=== PATIENT | male | born 1955 ===

== ENCOUNTER 2016-06-25 19:31 | Emergency (ER) | payer OTHER ==
--- NOTE | 2016-06-25 19:44 | CPEKG ---
Heart Rate: 73 RR Interval: 822 P-R Interval: 180 QRSD Interval: 98 QT Interval: 408 QTC Interval: 450 P [place]: 47 QRS [place]: 61 T Wave [place]: 34 EKG Severity - BORDERLINE ECG - EKG Impression: SINUS RHYTHM EKG Impression: BORDERLINE INFERIOR Q WAVES Electronically Signed By: Zachery North 25-Jun-2016 21:08:04
[2016-06-25] MEDS ORDERED: NS 1,000 ML IV ONE (19:54)
[2016-06-25] MEDS ORDERED: LORazepam 2 MG/ML INJ IVP ONE (19:55)
[2016-06-25 19:59] LABS: % IMMATURE GRANULYOCYTES 0.2 % (0.0-1.1); ABSOLUTE IMMATURE GRANULOCYTES 0.02 10^3/uL (0.00-0.10); ADD DIFF? NO; ADD MORPH? NO; ADD SCAN? NO; ATYPICAL LYMPHOCYTE FLAG 10 (0-99); FRAGMENT RBC FLAG 0 (0-99); HEMATOCRIT 43.8 % (40.0-51.0); HEMOGLOBIN 15.1 g/dL (13.7-17.5); LEFT SHIFT FLG 0 (0-99); LIPEMIA HEMOLYSIS FLAG 90 (0-99); MEAN CELL HEMOGLOBIN 29.8 pg (27.9-34.1); MEAN CELL HEMOGLOBIN CONCENTR. 34.5 g/dL (32.4-36.7); MEAN CELL VOLUME 86.4 fL (81.5-99.8); PLATELET CLUMPS FLAG 30 (0-99); PLATELET COUNT 236 10^3/uL (150-400); RED BLOOD CELL COUNT 5.07 10^6/uL (4.40-6.38); RED CELL DISTRIBUTION WIDTH 14.2 % (11.5-15.2)
--- NOTE | 2016-06-25 20:08 | EDPHY ---
H & P Stated Complaint: Dizzyness Time Seen by Provider: 06/25/16 19:38 HPI/ROS: CHIEF COMPLAINT: Presyncope, dizziness, mild anxiety HISTORY OF PRESENT ILLNESS: The patient presents to the emergency department with a chief complaint of presyncope, dizziness and mild anxiety. The patient review reports he is under fair amount of stress over maintenance payments he is making to his ex- which may be prolonged another 10 years. Additionally , the patient is facing some uncertainty surrounding his division at work. The patient was at dinner this evening and developed generalized weakness, lightheadedness and presyncope. He had no complaints of chest pain or shortness of breath. He had no neurologic symptoms. The patient presents to the ED for further evaluation. The patient had a similar episode 5 years ago and was evaluated in the emergency department without pathology. The patient has no history of significant past medical problems. REVIEW OF SYSTEMS: A comprehensive 10 point review of systems is otherwise negative aside from elements mentioned in the history of present illness. Source: Patient Exam Limitations: No limitations - Personal History Current Tetanus/Diphtheria Vaccine: Yes Current Tetanus Diphtheria and Acellular Pertussis (TDAP): Yes Tetanus Vaccine Date: WITHIN 10 Y - Medical/Surgical History Hx Asthma: No Hx Chronic Respiratory Disease: No Hx Diabetes: No Hx Cardiac Disease: No Hx Renal Disease: No Hx Cirrhosis: No Hx Alcoholism: No Hx HIV/AIDS: No Hx Splenectomy or Spleen Trauma: No Other PMH: nocturnal apnea. C5-C6 artificial disc - Social History Smoking Status: Never smoked - Physical Exam Exam: General Appearance: Alert, no distress Eyes: Pupils equal and round no pallor or injection ENT, Mouth: Mucous membranes moist Respiratory: There are no retractions, lungs are clear to auscultation Cardiovascular: Regular rate and rhythm Gastrointestinal: Abdomen is soft and nontender, no masses, bowel sounds normal Neurological: A&O, normal motor function, normal sensory exam, normal cranial nerves Skin: Warm and dry, no rashes Musculoskeletal: Neck is supple nontender Extremities: symmetrical, full range of motion Constitutional: Initial Vital Signs Temperature (C) 36.9 C 06/25/16 19:41 Heart Rate 72 06/25/16 19:41 Respiratory Rate 14 06/25/16 19:41 Blood Pressure 158/100 H 06/25/16 19:41 O2 Sat (%) 97 06/25/16 19:41 O2 Delivery Mode Room Air Allergies/Adverse Reactions: MOLD Allergy (Mild, Uncoded 06/25/16 19:41) Congestion Home Medications: Medication Instructions Recorded No Home Medications 11/30/12 Pharmacy Completed 11/30/12 11/30/12 LORazepam [Ativan] 1 mg PO BID PRN #10 tab 06/25/16 Medical Decision Making - Diagnostics EKG Interpretation: EKG: Complete interpretation has been separately recorded in the [place] archive. Summary impression: Sinus rhythm, borderline Q-waves noted ED Course/Re-evaluation: The patient presents to the emergency department with symptoms likely related to anxiety. The patient has no evidence of an arrhythmia. He has no risk factors for cardiac disease. The patient is noted to be neurologically intact. In the emergency department the patient did receive IV fluids and 1 mg of IV Ativan. The patient's laboratory studies are within normal limits. At this point time I do feel the patient can be discharged home with customary return precautions such as returning to the ED immediately for chest pain, difficulty breathing, severe headache or neurologic symptoms. The patient is scheduled to get his annual physical through his primary care provider in the next month. The patient was re-evaluated by myself at 9:00 p.m.. He continues to have a normal neurologic examination. His vital signs are stable. The patient will be given a short course of Ativan to use on an as-needed basis for his situational anxiety. Differential Diagnosis: Differential diagnosis considered includes anxiety, arrhythmia, dehydration, metabolic abnormality, anemia - Data Points Laboratory Results: Laboratory Results 06/25/16 19:45 06/25/16 19:45 06/25/16 19:45 WBC 9.07 10^3/uL (3.80-9.50) RBC 5.07 10^6/uL (4.40-6.38) Hgb 15.1 g/dL (13.7-17.5) Hct 43.8 % (40.0-51.0) MCV 86.4 fL (81.5-99.8) MCH 29.8 pg (27.9-34.1) MCHC 34.5 g/dL (32.4-36.7) RDW 14.2 % (11.5-15.2) Plt Count 236 10^3/uL (150-400) MPV 10.0 fL (8.7-11.7) Neut % (Auto) 52.7 % (39.3-74.2) Lymph % (Auto) 38.1 % (15.0-45.0) [place] % (Auto) 7.6 % (4.5-13.0) Eos % (Auto) 1.0 % (0.6-7.6) Baso % (Auto) 0.4 % (0.3-1.7) Nucleat RBC Rel Count 0.0 % (0.0-0.2) Absolute Neuts (auto) 4.77 10^3/uL (1.70-6.50) Absolute Lymphs (auto) 3.46 H 10^3/uL (1.00-3.00) Absolute Monos (auto) 0.69 10^3/uL (0.30-0.80) Absolute Eos (auto) 0.09 10^3/uL (0.03-0.40) Absolute Basos (auto) 0.04 10^3/uL (0.02-0.10) Absolute Nucleated RBC 0.00 10^3/uL (0-0.01) Immature Gran % 0.2 % (0.0-1.1) Immature Gran # 0.02 10^3/uL (0.00-0.10) Sodium 136 mEq/L (134-144) Potassium 3.8 mEq/L (3.5-5.2) Chloride 100 mEq/L (97-110) Carbon Dioxide 27 mEq/l (22-31) Anion Gap 9 mEq/L (8-16) BUN 16 mg/dL (7-23) Creatinine 0.8 mg/dL (0.7-1.3) Estimated GFR > 60 Glucose 119 H mg/dL (70-100) Calcium 9.2 mg/dL (8.5-10.4) Medications Given: Discontinued Medications Sodium Chloride (Ns) 1,000 mls @ 0 mls/hr IV ONCE ONE PRN Reason: Wide Open Stop: 06/25/16 19:55 Last Admin: 06/25/16 19:57 Dose: 1,000 mls Lorazepam (Ativan Injection) 1 mg IVP EDNOW ONE Stop: 06/25/16 19:56 Last Admin: 06/25/16 20:03 Dose: 1 mg Departure - Departure Disposition: Home, Routine, Self-Care Clinical Impression: Anxiety Condition: Good Instructions: Anxiety (ED) Additional Instructions: 1. Please return to the ED for passing out, chest pain, difficulty breathing, worsening symptoms or other concerns. 2. Please follow up as scheduled with your primary care provider for your annual physical. 3. You have been given a short prescription for Ativan. Please uses medication cautiously as a can be habit-forming. Prescriptions: LORazepam [Ativan] 1 mg PO BID PRN #10 tab PRN Reason: for anxiety
[2016-06-25 20:17] LABS: ANION GAP 9 mEq/L (8-16); CALCIUM 9.2 mg/dL (8.5-10.4); CARBON DIOXIDE 27 mEq/l (22-31); CHLORIDE 100 mEq/L (97-110); CREATININE 0.8 mg/dL (0.7-1.3); GLOMERULAR FILTRATION RATE > 60; GLUCOSE 119 mg/dL (70-100); POTASSIUM 3.8 mEq/L (3.5-5.2); SODIUM 136 mEq/L (134-144)
[2016-06-25 20:55] VITALS: BP 131/90; PULSE 73; RESP 16; TEMP 97.7; O2SAT 97
== END 2016-06-25 20:55 | disposition home or self-care (01) ==
DX: F41.9 Anxiety disorder, unspecified (principal)
CPT/HCPCS: 96374

== ENCOUNTER 2016-07-17 13:25 | Emergency (ER) | payer OTHER ==
--- NOTE | 2016-07-17 13:45 | CPEKG ---
Heart Rate: 66 RR Interval: 909 P-R Interval: 164 QRSD Interval: 98 QT Interval: 420 QTC Interval: 441 P [place]: 51 QRS [place]: 54 T Wave [place]: 31 EKG Severity - NORMAL ECG - EKG Impression: SINUS RHYTHM Electronically Signed By: Best Rahman 17-Jul-2016 13:50:06
--- NOTE | 2016-07-17 13:49 | EDPHY ---
H & P Time Seen by Provider: 07/17/16 13:48 HPI/ROS: CHIEF COMPLAINT: Heartburn and anxiety HISTORY OF PRESENT ILLNESS: This 61-year-old man presents to me with a history of about 1 month of intermittent anxiety. He returned back [place] Thursday, from a vacation in [facility]. Yesterday morning he developed some heartburn in the morning which resolved with antacid, and then today again at 7:30 a.m. he developed a little bit of heartburn which also resolved within acid. He describes it as a dull pain around my diaphragm associated with belching. It is in his epigastrium but also had a little bit of lightheadedness today. Around noon in his was out with her parents he developed recurrent heartburn with dizziness and feeling lightheaded and anxiety and was brought to the emergency department by EMS. Currently symptoms are mostly resolved except for some very slight epigastric symptoms and some dizziness. REVIEW OF SYSTEMS: Eye: no change in vision ENT: no sore throat Cardiac: No palpitations or syncope and no pain in his chest. Pulmonary: no cough or SOB Abdomen: No vomiting or diarrhea. Musculoskeletal: no back pain or leg pain or leg swelling. Skin: no rash Neuro: no headache, no vertigo or ear symptoms. No weakness or numbness in arms or legs. Earlier his hands felt cold. Constitutional: no fever : no urinary symptoms A comprehensive 10 point review of systems is otherwise negative aside from elements mentioned in the history of present illness. PAST MEDICAL HISTORY: Negative for diabetes or hypercholesterolemia or hypertension. Social history: Father with atrial fibrillation, no family history of coronary disease at his age and no family history of pulmonary embolism or DVT. Nonsmoker, no cocaine. General Appearance: Alert and conversant, cooperative. Eyes: No scleral icterus. ENT, Mouth: Normal mucous membranes. Respiratory: Normal respiratory effort, breath sounds equal, lungs are clear to auscultation. Cardiovascular: Regular rate and rhythm. No murmurs. Gastrointestinal: Abdomen is soft and non tender. No Musa sign or right upper quadrant tenderness. Neurological: Alert and oriented x3. Normally conversant. Face symmetric, normal movement and sensation in all extremities. Skin: Warm and dry, no rashes. Musculoskeletal: No peripheral edema and no joint swelling. No calf tenderness. Psychiatric: Not agitated. Emergency Department course/MDM: Patient was very active in [facility] with sea kayaking, an hour and a half run , and multiple hikes. He did not have any symptoms there. His emergency department oxygen saturation is 99%, heart rate is 62 and I think pulmonary embolism would be unlikely despite his recent travel. He does not really have chest pain or shortness of breath; his symptoms are primarily epigastric in location. He does have slightly increased recent alcohol intake. Plan for GI cocktail, labs to include troponin, lipase and LFTs. If negative, discharge with outpatient follow-up. 1505: Labs and outpatient referral plan discussed with the patient. He felt better after GI cocktail. Smoking Status: Never smoked Constitutional: Initial Vital Signs Temperature (C) 37 C 07/17/16 14:11 Heart Rate 61 07/17/16 14:11 Respiratory Rate 16 07/17/16 14:11 Blood Pressure 132/83 H 07/17/16 14:11 O2 Sat (%) 97 07/17/16 14:11 O2 Delivery Mode Room Air Allergies/Adverse Reactions: MOLD Allergy (Mild, Uncoded 07/17/16 14:08) Congestion Home Medications: Medication Instructions Recorded LORazepam [Ativan] 1 mg PO BID PRN #10 tab 06/25/16 Medical Decision Making - Diagnostics EKG Interpretation: 12-lead EKG interpreted by me; official reading is in trace master. My interpretation is sinus rhythm rate 66 no acute ischemic changes. Differential Diagnosis: Differential considered including but not limited to acute coronary syndrome, pancreatitis, hepatitis, pulmonary embolism, gastroesophageal reflux, anxiety. - Data Points Laboratory Results: Laboratory Results 07/17/16 13:45 07/17/16 13:45 07/17/16 13:45 WBC 7.29 10^3/uL (3.80-9.50) RBC 4.87 10^6/uL (4.40-6.38) Hgb 15.1 g/dL (13.7-17.5) Hct 43.3 % (40.0-51.0) MCV 88.9 fL (81.5-99.8) MCH 31.0 pg (27.9-34.1) MCHC 34.9 g/dL (32.4-36.7) RDW 14.0 % (11.5-15.2) Plt Count 267 10^3/uL (150-400) MPV 10.0 fL (8.7-11.7) Neut % (Auto) 60.6 % (39.3-74.2) Lymph % (Auto) 29.8 % (15.0-45.0) [place] % (Auto) 7.3 % (4.5-13.0) Eos % (Auto) 1.4 % (0.6-7.6) Baso % (Auto) 0.5 % (0.3-1.7) Nucleat RBC Rel Count 0.0 % (0.0-0.2) Absolute Neuts (auto) 4.42 10^3/uL (1.70-6.50) Absolute Lymphs (auto) 2.17 10^3/uL (1.00-3.00) Absolute Monos (auto) 0.53 10^3/uL (0.30-0.80) Absolute Eos (auto) 0.10 10^3/uL (0.03-0.40) Absolute Basos (auto) 0.04 10^3/uL (0.02-0.10) Absolute Nucleated RBC 0.00 10^3/uL (0-0.01) Immature Gran % 0.4 % (0.0-1.1) Immature Gran # 0.03 10^3/uL (0.00-0.10) Sodium 139 mEq/L (134-144) Potassium 4.6 mEq/L (3.5-5.2) Chloride 103 mEq/L (97-110) Carbon Dioxide 27 mEq/l (22-31) Anion Gap 9 mEq/L (8-16) BUN 17 mg/dL (7-23) Creatinine 0.8 mg/dL (0.7-1.3) Estimated GFR > 60 Glucose 98 mg/dL (70-100) Calcium 9.3 mg/dL (8.5-10.4) Total Bilirubin 1.1 mg/dL (0.1-1.4) Conjugated Bilirubin 0.2 mg/dL (0.0-0.5) Unconjugated Bilirubin 0.9 mg/dL (0.0-1.1) AST 36 IU/L (17-59) ALT 50 IU/L (21-72) Alkaline Phosphatase 67 IU/L (38-126) Troponin I < 0.012 ng/mL (0-0.034) Total Protein 6.4 g/dL (6.3-8.2) Albumin 4.0 g/dL (3.5-5.0) Lipase 87.0 IU/L (23-300) Medications Given: Discontinued Medications Miscellaneous Medication (Gi Cocktail) 55 ml PO EDNOW ONE Stop: 07/17/16 14:09 Last Admin: 07/17/16 14:37 Dose: 55 ml Departure - Departure Disposition: Home, Routine, Self-Care Clinical Impression: GERD (gastroesophageal reflux disease) Condition: Good Instructions: Gastroesophageal Reflux Disease (ED), Anxiety (ED) Referrals: ALIREZA ANTHONY [Non Staff Provider (MD)] - As per Instructions Lester Sierra MD [Medical Doctor] - As per Instructions
[2016-07-17] MEDS ORDERED: MAALOX/LIDO/HYOSC GI COCKTAIL 55 ML BOTTLE PO ONE (14:08)
[2016-07-17 14:23] VITALS: RESP 16
[2016-07-17 14:31] LABS: % IMMATURE GRANULYOCYTES 0.4 % (0.0-1.1); ABSOLUTE IMMATURE GRANULOCYTES 0.03 10^3/uL (0.00-0.10); ADD DIFF? NO; ADD MORPH? NO; ADD SCAN? NO; ATYPICAL LYMPHOCYTE FLAG 30 (0-99); FRAGMENT RBC FLAG 10 (0-99); HEMATOCRIT 43.3 % (40.0-51.0); HEMOGLOBIN 15.1 g/dL (13.7-17.5); LEFT SHIFT FLG 0 (0-99); LIPEMIA HEMOLYSIS FLAG 90 (0-99); MEAN CELL HEMOGLOBIN CONCENTR. 34.9 g/dL (32.4-36.7); MEAN CELL VOLUME 88.9 fL (81.5-99.8); PLATELET CLUMPS FLAG 10 (0-99); PLATELET COUNT 267 10^3/uL (150-400); RED BLOOD CELL COUNT 4.87 10^6/uL (4.40-6.38)
[2016-07-17 14:38] LABS: ALANINE AMINOTRANSFERASE 50 IU/L (21-72); ALKALINE PHOSPHATASE 67 IU/L (38-126); ANION GAP 9 mEq/L (8-16); ASPARTATE AMINOTRANSFERASE 36 IU/L (17-59); BILIRUBIN,TOTAL 1.1 mg/dL (0.1-1.4); BILIRUBIN-CONJUGATED 0.2 mg/dL (0.0-0.5); BILIRUBIN-UNCONJUGATED 0.9 mg/dL (0.0-1.1); CALCIUM 9.3 mg/dL (8.5-10.4); CARBON DIOXIDE 27 mEq/l (22-31); CHLORIDE 103 mEq/L (97-110); CREATININE 0.8 mg/dL (0.7-1.3); GLOMERULAR FILTRATION RATE > 60; GLUCOSE 98 mg/dL (70-100); POTASSIUM 4.6 mEq/L (3.5-5.2); SODIUM 139 mEq/L (134-144); TOTAL PROTEIN 6.4 g/dL (6.3-8.2)
[2016-07-17 14:49] LABS: TROPONIN I < 0.012 ng/mL (0-0.034)
[2016-07-17 15:36] VITALS: BP 113/77; PULSE 66; TEMP 99; O2SAT 94
== END 2016-07-17 15:33 | disposition home or self-care (01) ==
LOC: EDUNIT#
DX: K21.9 Gastro-esophageal reflux disease without esophagitis (principal)